=== PATIENT | male | born 1950 | race Caucasian/White ===

== ENCOUNTER 2023-08-02 12:50 | Outpatient (CLI) | payer MEDICARE, BC | END 2023-08-02 12:51 | disposition home or self-care (01) | LOC: LAB.S 12:50 | PROVIDERS: ATTEND Internal Medicine | DX: G62.9 Polyneuropathy, unspecified (principal) | CPT/HCPCS: 36415; 82607; 84207 ==

== ENCOUNTER 2024-03-14 16:22 | Outpatient (CLI) | payer MEDICARE, BC ==
--- NOTE | 2024-03-14 17:07 | XRAY Report ---
PROCEDURE: Foot 3+V RT INDICATIONS: RIGHT GREAT TOE SPRAIN TECHNIQUE: 3 views of the foot were acquired. COMPARISON: None. FINDINGS: Bones: No fractures or dislocations. Osteoarthritic changes are noted throughout right foot more not ably and forefoot joints. No suspicious bony lesions. Soft tissues: No tibiotalar joint effusion. Achilles tendon appears normal. IMPRESSION: No acute right foot fracture or dislocation. Mild right foot osteoarthritis. No gross metatarsal stre ss fractures. Reviewed by: Lenny Diaz MD on 03/14/2024 5:06 PM PDT Approved by: Lenny Diaz MD on 03/14/2024 5:06 PM PDT Station ID: [id number]
== END 2024-03-14 16:23 | disposition home or self-care (01) ==
LOC: DI.S 16:22
PROVIDERS: ATTEND Internal Medicine
DX: M19.071 Primary osteoarthritis, right ankle and foot (principal)

== ENCOUNTER 2024-03-19 13:05 | Outpatient (CLI) | payer MEDICARE, BC ==
[2024-03-19 20:31] LABS: ESTIMATED AVERAGE GLUCOSE 123 mg/dL (70-100); HEMOGLOBIN A1c% 5.9 % (4.27-6.07)
[2024-03-19 20:36] LABS: THYROID STIMULATING HORMONE 1.56 uIU/mL (0.34-5.60)
== END 2024-03-19 13:06 | disposition home or self-care (01) ==
LOC: LAB.S 13:05
PROVIDERS: ATTEND Internal Medicine
DX: E53.8 Deficiency of other specified B group vitamins (principal); G62.9 Polyneuropathy, unspecified; R73.09 Other abnormal glucose
CPT/HCPCS: 36415; 82607; 83036; 83090; 83921; 84443